=== PATIENT | female | born 1985 | race Caucasian/White ===

== ENCOUNTER 2017-05-21 12:16 | Emergency (ER) | payer MEDICARE, MEDICAID ==
[2017-05-21 13:57] LABS: BASOPHILS 0.6 % (0-2); EOSINOPHILS 0.1 % (0-7); HEMATOCRIT 38.2 % (36.0-48.0); HEMOGLOBIN 12.4 g/dL (12-16); IMMATURE GRANULOCYTES 0.3 % (0-5); LYMPHOCYTES 32.8 % (15-50); MCH 24.4 pg (26.0-34.0); MCHC 32.5 g/dL (31.0-37.0); MEAN PLATELET VOLUME 9.8 fL (7.4-10.4); MONOCYTES 6.1 % (2-11); NEUTROPHILS 60.1 % (40-80); PLATELET COUNT 410 10x3/uL (130-400); RBC 5.09 10x6/uL (4.00-5.40); RDW 15.3 % (11.5-14.5); WBC 8.9 10x3/uL (4.8-10.8)
[2017-05-21 14:08] LABS: HCG SERUM NEGATIVE (NEGATIVE)
[2017-05-21 14:14] LABS: ALBUMIN 3.5 g/dL (3.4-5.0); ALKALINE PHOSPHATASE 53 U/L (46-116); ALT (SGPT) 36 U/L (10-68); BILIRUBIN - TOTAL 0.77 mg/dL (0.2-1.3); CALC OSMOLALITY 275 mosm/kg (275-300); CALCIUM 8.7 mg/dL (8.5-10.1); CHLORIDE - SERUM 102 mmol/L (98-107); CREATININE - SERUM 0.9 mg/dL (0.6-1.3); GLUCOSE 80 mg/dL (74-106); POTASSIUM - SERUM 3.2 mmol/L (3.5-5.1); PROTEIN - SERUM 7.5 g/dL (6.4-8.2); SODIUM 139 mmol/L (136-145); UREA NITROGEN 11 mg/dL (7-18); eGFR NON AFRICAN AMERICAN 77 mL/min (90-120)
[2017-05-21 14:17] LABS: UDS - AMPHET NEGATIVE QUAL (NEGATIVE); UDS - BARB NEGATIVE QUAL (NEGATIVE); UDS - BENZO POSITIVE QUAL (NEGATIVE); UDS - COCAINE NEGATIVE QUAL (NEGATIVE); UDS - OPIATE NEGATIVE QUAL (NEGATIVE); UDS - PCP NEGATIVE QUAL (NEGATIVE); UDS - THC POSITIVE QUAL (NEGATIVE)
[2017-05-21 14:23] LABS: APPEARANCE CLEAR (CLEAR); BILIRUBIN NEGATIVE (NEGATIVE); COLOR YELLOW (YELLOW); GLUCOSE NEGATIVE (NEGATIVE); KETONE NEGATIVE (NEGATIVE); NITRITE NEGATIVE (NEGATIVE); PROTEIN NEGATIVE (NEGATIVE); UROBILINOGEN NORMAL (NORMAL)
== END 2017-05-21 18:05 | disposition short-term general hospital (02) ==
LOC: D.ER 12:16
PROVIDERS: Physician Assistant
DX: F31.9 Bipolar disorder, unspecified (principal); R45.851 Suicidal ideations; Z86.59 Personal history of other mental and behavioral disorders; E87.6 Hypokalemia; F17.200 Nicotine dependence, unspecified, uncomplicated

== ENCOUNTER 2019-06-03 18:20 | Inpatient (IN) | payer MEDICARE, MEDICAID ==
[~2019-06-03] VITALS: Ht 152.4 cm; Wt 70.0 kg
[2019-06-03] MEDS ORDERED: LATUDA40 MG PO (18:38)
[2019-06-03] MEDS ORDERED: CELEXA20 MG PO (18:38)
[2019-06-03] MEDS ORDERED: KLONOPIN0.5 MG PO (18:39)
[2019-06-03] MEDS ORDERED: ZOFRAN4 MG PO (18:39)
[2019-06-03] MEDS ORDERED: ZYRTEC10 MG PO (18:40)
[2019-06-03] MEDS ORDERED: PRENAVITE1 TAB PO (18:40)
[2019-06-03] MEDS ORDERED: PEPCID40 MG PO (18:40)
[2019-06-03] MEDS ORDERED: PEPCID AC20 MG PO (18:41)
[2019-06-03 19:23] LABS: HEMATOCRIT 37.2 % (36.0-48.0); HEMOGLOBIN 12.4 g/dL (12-16); MCH 25.7 pg (26.0-34.0); MCHC 33.3 g/dL (31.0-37.0); MCV 77.2 fL (80.0-100.0); MEAN PLATELET VOLUME 8.9 fL (7.4-10.4); RBC 4.82 10x6/uL (4.00-5.40); RDW 19.6 % (11.5-14.5); WBC 13.4 10x3/uL (4.8-10.8)
[2019-06-03 19:39] LABS: UDS - AMPHET NEGATIVE QUAL (NEGATIVE); UDS - BARB NEGATIVE QUAL (NEGATIVE); UDS - BENZO NEGATIVE QUAL (NEGATIVE); UDS - COCAINE NEGATIVE QUAL (NEGATIVE); UDS - OPIATE NEGATIVE QUAL (NEGATIVE); UDS - PCP NEGATIVE QUAL (NEGATIVE); UDS - THC NEGATIVE QUAL (NEGATIVE)
[2019-06-03 22:48] VITALS: BP 113/80; Ht 152.4 cm; Wt 70.0 kg
--- NOTE | 2019-06-03 23:47 | NUR ---
DR. EDUARDO NOTIFIED AND REVIEWED PT'S BEHAVIOR AND ASSESSMENT RESULTS. PT IS A LOW RISK PER DR. EDUARDO. DR. EDUARDO STATED TO GIVE RESOURCES TO PT AT TIME OF DISCHARGE. NO FURTHER ORDERS AT THIS TIME. RESOURCES REVIEWED WITH PT AND SHE VERBALIZED UNDERSTANDING.
--- NOTE | 2019-06-04 01:02 | NUR ---
ROUNDS MADE. PT LYING TO RT SIDE W/EYES CLOSED. RESP EVEN AND UNLABORED. PT LEFT UNDISTURBED AT THIS TIME.
--- NOTE | 2019-06-04 02:52 | NUR ---
PT RINGS CALL LIGHT. THIS RN TO BEDSIDE. PT REPORTS NOW THAT SHE IS AWAKE. SHE'D LIKE TO GO BACK TO NBN SO SHE MAY GO OFF THE UNIT TO SMOKE. INFANT TRANSPORTED VIA OPEN CRIB TO NBN. PT AMBULATORY OFF UNIT AT THIS TIME.
--- NOTE | 2019-06-04 03:15 | NUR ---
PT RETURNS AMBULATORY TO UNIT AND TO ROOM.
--- NOTE | 2019-06-04 03:20 | NUR ---
SANDWICH TRAY AND SWEET TEA SERVED.
--- NOTE | 2019-06-04 03:32 | NUR ---
PT REQUESTING HER HOME MED OF 0.5MG CLONIPIN. DR JONES CALLED FOR ORDER. T/O RECEIVED TO ADMIN 0.5MG CLONIPIN.
[2019-06-04 03:43] VITALS: BP 112/73
--- NOTE | 2019-06-04 04:00 | NUR ---
KLONOPIN 0.5MG PO ADMIN. PT PLANS TO REST UNTIL INFANT IS RETURNED FOR FEEDING. DENIES FURTHER NEEDS AT THIS TIME.
--- NOTE | 2019-06-04 04:10 | NUR ---
PT AMBULATORY OFF UNIT AT THIS TIME.
--- NOTE | 2019-06-04 05:22 | NUR ---
pt ambulatory off unit at this time.
--- NOTE | 2019-06-04 05:46 | NUR ---
pt returns ambulatory to unit and back to her room. no complaints or needs voiced at this time.
--- NOTE | 2019-06-04 06:30 | NUR ---
ROUNDS MADE. PT RESTING QUIETLY W/EYES CLOSED TO RT SIDE. RESP EVEN AND UNLABORED. PT LEFT UNDISTURBED AT THIS TIME.
[2019-06-04 06:52] LABS: BASOPHILS 0.3 % (0-2); EOSINOPHILS 0.4 % (0-7); HEMATOCRIT 33.4 % (36.0-48.0); HEMOGLOBIN 10.8 g/dL (12-16); IMMATURE GRANULOCYTES 0.4 % (0-5); LYMPHOCYTES 30.7 % (15-50); MCH 25.2 pg (26.0-34.0); MCHC 32.3 g/dL (31.0-37.0); MEAN PLATELET VOLUME 8.6 fL (7.4-10.4); MONOCYTES 9.9 % (2-11); NEUTROPHILS 58.3 % (40-80); PLATELET COUNT 369 10x3/uL (130-400); RBC 4.28 10x6/uL (4.00-5.40); RDW 19.8 % (11.5-14.5); WBC 15.9 10x3/uL (4.8-10.8)
--- NOTE | 2019-06-04 07:19 | NUR ---
NO BEDSIDE SHIFT DONE AT THIS TIME DUE TO PATIENT IS APPARENTLY SLEEPING AT THIS TIME.
[2019-06-04 07:40] VITALS: BP 114/78
--- NOTE | 2019-06-04 07:40 | NUR ---
AM ASSESSMENT COMPLETED, SEE FLOW SHEET. PT DENIES HEAVY BLEEDING OR PASSING CLOTS. PT REQUESTS MOTRIN FOR CHRONIC BACK PAIN, MEDICATION ADM RECORD REVIEWED WITH PT. PT DENIES ALL OTHER NEEDS AT THIS TIME.
--- NOTE | 2019-06-04 08:00 | NUR ---
DR. BEDOYA ON UNIT.
--- NOTE | 2019-06-04 08:00 | NUR ---
DR. JONES TO FOLLOW PT/DELIVERING
--- NOTE | 2019-06-04 08:25 | NUR ---
PT AMBULATORY IN HALLWAY, TALKING ON CELL PHONE. PT SMILING, AND DENIES ALL NEEDS AT THIS TIME. PT THEN BACK TO ROOM, SR UP X 2, CALL LIGHT AND PHONE WITHIN REACH.
--- NOTE | 2019-06-04 09:45 | NUR ---
PT AMBULATORY OUT TO HALLWAYS. PT STATES SHE IS GOING TO GET SOME FRESH AIR. NO DISTRESS NOTED IN PT. PT SMILING, AND DENIES NEEDS AT THIS TIME.
--- NOTE | 2019-06-04 10:25 | NUR ---
PT SITTING UP IN THE BED, TALKING ON CELL PHONE. EXTRA PERIPADS/PANTIES PROVIDED. PT REQUESTS TEA TO DRINK, LARGE GLASS OF ICED TEA SERVED, ALONG WITH SPLENDA AT HER REQUEST. LARGE GLASS OF ICE WATER SERVED WELL. PT DENIES ALL OTHER NEEDS AT THIS TIME. SRUP X 2, CALL LIGHT AND PHONE WITHIN REACH.
--- NOTE | 2019-06-04 12:00 | NUR ---
PT AMBULATORY TO HALLWAYS. PT SMILING AND DENIES ALL NEEDS AT THIS TIME. PHONE CALL THEN RECEIVED FROM DR. JONES ASKING IF WE DISCHARGED THE PT SHE IS STANDING AT THEIR DESK. PT THEN BACK TO UNIT, STATING "I WENT OVER TO THE CLINIC BECAUSE THEY WOULD NOT ANSWER THEIR PHONES AND I HAD A QUESTION, BUT THEY STILL DID NOT ANSWER MY QUESTION, THEY JUST SAID THEY WERE GOING TO CALL LABOR AND DELIVERY". PT'S QUESTION IS THAT SHE WANTED TO KNOW IF DR. JONES WAS GOING TO START HER BACK ON HER HOME MEDS OR NOT. PT BACK TO ROOM, SRUP X2, CALL LIGHT AND PHONE WITHIN REACH. PT DENIES ALL NEEDS AT THIS TIME.
--- NOTE | 2019-06-04 12:15 | NUR ---
DR. JONES CALLS TO UNIT ASKING IF WE HAD DISCHARGED PT, WAS INFORMED WE HAD NOT. DR. JONES SPEAKS WITH Lc ZAMORA RN AND STATES THE PT CAN RESUME HER LISTED HOME MEDS AFTER SHE IS DISCHARGED HOME.
--- NOTE | 2019-06-04 15:42 | MORECARE ---
CASE MANAGEMENT DISCHARGE SUMMARY PATIENT: MINOR BAILEY UNIT: [id number] ADM DATE: 06/03/19 AGE: 34 : 86 SEX: F ROOM/BED: D.1278 AUTHOR: BERNADETTE JON PHYSICIAN: REFERRING PHYSICIAN: LETTY JONES DO DATE OF SERVICE: 06/04/19 Discharge Plan Patient Name: MINOR BAILEY Facility: [facility]:[place] : 1985 Planned Disposition: Home Anticipated Discharge Date: Discharge Date: Expected LOS: Initial Reviewer: [email or web address] Initial Review Date: 06/04/2019 Generated: 06/04/19 4:42 pm Comments DCP- Discharge Planning Updated by [id number]: Tiffany Boyle on 06/04/19 2:[address] Patient Name: MINOR BAILEY Admission Status: Elective Accout number: [id number] Admission Date: 06-03-2019 : 1985 Admission Diagnosis: Attending: CASE Current LOS: 1 Anticipated DC Date: Planned Disposition: Primary Insurance: [facility] MEDICARE ADV Discharge Planning Comments: DC PLAN: MOB HOME WITH INFANT, FOB will transport home. ADDRESS: [address] [place] [address] PHONE NUMBER: [phone] DC NEEDS: STATES NO NEEDS. TRANSPORTATION: YES WIC: HAS ALREADY APPLIED MEDICAID: Just applied CAR SEAT: YES FEEDING PLAN: FORMULA BABY NAME: AYAKA BAILEY FOB: JOHNNY BAILEY MOB: MINOR BAILEY MEDICAL LAB SPECIALIST: DR. BYNUM CARE: YES, DR. BEDOYA SUPPLIES: CLOTHES, BOTTLES, CRIB, CAR SEAT, DIAPERS. DRUG, ALCOHOL OR TOBACCO USE IN THE HOME: TOBACCO USE, FOB AND MOB, STATES THEY SMOKE OUTSIDE. CM MET WITH MOB REGARDING DC PLANNING/NEEDS. MOB STATES PLANS TO DC TO HOME WITH HER WHERE SHE LIVES. FOB, MOB, AND ONE OTHER CHILD LIVES IN THE HOME. MOB STATES SHE HAS A 15-YEAR-OLD THAT LIVES WITH THE GRANDMOTHER. HER 10 Y/O DAUGHTER LIVES IN THE HOME. DENIES SUBSTANCE USE OR ABUSE IN THE HOME. FOB WILL TRANSPORT HER AND INFANT TO DOCTOR APPOINTMENTS AND WILL HELP CARE FOR THE INFANT. THE HOME ENVIRONMENT IS A SAFE PLACE ACCORDING TO PATIENT AND IT IS STATED THAT THEY HAVE ALL SUPPLIES FOR THE . MOB STATES SHE IS MENTALLY DISABLED. HAS SCHIZOEFECTIVE, BIPOLAR, ANXIETY AND SOME OTHER MENTAL HEALTH ISSUES. STATES SHE TAKES MEDICATIONS FOR THESE ILLNESSES AND IS SEEN BY DR. OWENS. DENIES SUICIDAL OR HOMICIDAL THOUGHTS. MAKES EYE CONTACT AND APPEARS TO BE BONDING WELL WITH . NO CONCERNS OR COMPLAINTS. CM WILL FOLLOW AND ASSIST NEEDED. Door Glass Installer: Tiffany Tamar Patient Name: MINOR BAILEY Page [phone] at 1542 All edits/amendments must be made on the electronic document DICTATION DATE: 06/04/19 154 TRANSCRIPT CLERK: TRISHA 06/04/191541 RPT#: [id number] DC DATE: STATUS: ADM IN [facility] [address] [place] [address] END OF REPORT
--- NOTE | 2019-06-04 16:00 | NUR ---
PT AMBULATORY IN HALLWAYS, WITH FAMILY MEMBERS. PT SMILING AND DENIES ALL NEEDS.
--- NOTE | 2019-06-04 17:30 | NUR ---
PT HAS TAKEN A SHOWER, AND IS DRESSED IN OWN CLOTHING. DENIES ALL NEEDS AT THIS TIME. SRUP X2, CALL LIGHT AND PHONE WITHIN REACH.
--- NOTE | 2019-06-04 18:00 | NUR ---
TO PT'S ROOM, PT IS SITTING UP IN THE BED, FEEDING . PT IS TEARFUL, STATING "THEY ARE NOT GOING TO LET HIM GO HOME TODAY". SEE EMAR FOR MED ADM. IV DC'D WITH CATH INTACT, PT PAUL WELL. PT DENIES ALL NEEDS AT THIS TIME. PT HAS REGULAR SUPPER TRAY ON BEDSIDE TABLE, LARGE GLASS OF ICED TEA SERVED, ALONG WITH LARGE MUG OF ICE WATER. SRUP X2, CALL LIGHT AND PHONE WITHIN REACH .
--- NOTE | 2019-06-04 18:20 | NUR ---
PT AMBULATORY IN HALLWAYS, DENIES ALL NEEDS AT THIS TIME.
--- NOTE | 2019-06-04 19:02 | NUR ---
ROUNDS MADE, PT BACK IN ROOM FROM WALK, RESTING IN BED, RATES PAIN 11/12, INFORMED PT THAT I WILL BE BACK SHORLTY TO DO ASSESSMENT, PT VERBALIZES UNDERSTANDING, DENIES NEEDS AT THIS TIME
--- NOTE | 2019-06-04 20:25 | NUR ---
PT UP TO BATHROOM. SPOUSE AND [id number] IN ROOM VISITING. PT DENIES ANY COMPLAINTS OR NEEDS AT THIS TIME. BED IN LOW POSTION, SRU X2, CALL LIGHT AND PHONE IN REACH.
--- NOTE | 2019-06-04 20:40 | NUR ---
PT AMBULATING IN HW. NO DISTRESS NOTED.
--- NOTE | 2019-06-04 20:50 | NUR ---
PT BACK TO ROOM.
[2019-06-04 21:40] VITALS: BP 125/64
--- NOTE | 2019-06-04 21:40 | NUR ---
PT RESTING IN BED. ASSESSMENT COMPLETE PER FLOW SHEET. VSS. BS CLEAR IN ALL LOBES. BOWEL SOUNDS PRESENT X4 QUADRANTS. PT REPORTS PASSING FLATUS AND HAVING A BOWEL MOVEMENT. FUNDUS F@U. SCANT LOCHIA NOTED ON PERIPAD. NO CLOTS PRESENT. NO EDEMA NOTED TO BLE. PT EDUCATED ON PAIN MEDICATION AND VAGINAL BLEEDING. SRU X2, CALL LIGHT AND PHONE WITHIN REACH. PT INSTRUCTED TO NOTIFY NURSE WITH ANY PROBLEMS, NEEDS, OR CONCERNS, VERBALIZED UNDERSTANDING.
--- NOTE | 2019-06-04 21:45 | NUR ---
PT EDUCATION GIVEN TO AND DISCUSSED REGARDING FLU SHOT. PT RECEIVED FLU SHOT IN HER LEFT DELTIOD. TOLERATED WELL. INSTRUCTED PT TO NOTIFY NURSE WITH ANY PROBLEMS, NEEDS, OR CONCERNS, VERBALIZED UNDERSTANDING. BED IN LOW POSITION, SRU X2, CALL LIGHT AND PHONE WITHIN PTS REACH.
--- NOTE | 2019-06-04 22:22 | NUR ---
PT INSTRUCTED ON AND VERBALIZED UNDERSTANDING ON ROOMING AND CONSENT SIGNED AND WITNESSED.
--- NOTE | 2019-06-04 23:36 | NUR ---
PT GIVEN MOTRIN FOR C/O ABD CRAMPING AT THIS TIME. DISCHARGE INSTRUCTIONS IN HAND. QUESTIONS ANSWERED. PT VERBALIZED UNDERSTANDING.
[2019-06-05 07:13] LABS: RAPID PLASMA REAGIN Non Reactive (Non Reactive)
--- NOTE | 2019-06-05 16:10 | MORECARE ---
CASE MANAGEMENT DISCHARGE SUMMARY PATIENT: MINOR BAILEY UNIT: [id number] ADM DATE: 06/03/19 AGE: 34 : 86 SEX: F ROOM/BED: D.1278 AUTHOR: BERNADETTE JON PHYSICIAN: REFERRING PHYSICIAN: LETTY JONES DO DATE OF SERVICE: 06/05/19 Discharge Plan Patient Name: MINOR BAILEY Facility: [facility]:[place] : 1985 Planned Disposition: Home Anticipated Discharge Date: Discharge Date: 06/04/2019 Expected LOS: Initial Reviewer: [email or web address] Initial Review Date: 06/04/2019 Generated: 06/05/19 5:10 pm Comments DCP- Discharge Planning Updated by [email or web address]: Tiffany Boyle on 06/04/19 2:[address] Patient Name: MINOR BAILEY Admission Status: Elective Accout number: [id number] Admission Date: 06-03-2019 : 1985 Admission Diagnosis: Attending: CASE Current LOS: 1 Anticipated DC Date: Planned Disposition: Primary Insurance: [facility] MEDICARE ADV Discharge Planning Comments: DC PLAN: MOB HOME WITH , FOB will transport home. ADDRESS: [address] [place] [address] PHONE NUMBER: [phone] DC NEEDS: STATES NO NEEDS. TRANSPORTATION: YES WIC: HAS ALREADY APPLIED MEDICAID: Just applied CAR SEAT: YES FEEDING PLAN: FORMULA BABY NAME: AYAKA DINORAH BAILEY FOB: JOHNNY BAILEY MOB: MINOR BAILEY INSTALL AND REPAIR TECHNICIAN: DR. BYNUM CARE: YES, DR. BEDOYA SUPPLIES: CLOTHES, BOTTLES, CRIB, CAR SEAT, DIAPERS. DRUG, ALCOHOL OR TOBACCO USE IN THE HOME: TOBACCO USE, FOB AND MOB, STATES THEY SMOKE OUTSIDE. CM MET WITH MOB REGARDING DC PLANNING/NEEDS. MOB STATES PLANS TO DC TO HOME WITH HER WHERE SHE LIVES. FOB, MOB, AND ONE OTHER CHILD LIVES IN THE HOME. MOB STATES SHE HAS A 15-YEAR-OLD THAT LIVES WITH THE GRANDMOTHER. HER 10 Y/O DAUGHTER LIVES IN THE HOME. DENIES SUBSTANCE USE OR ABUSE IN THE HOME. FOB WILL TRANSPORT HER AND INFANT TO DOCTOR APPOINTMENTS AND WILL HELP CARE FOR THE INFANT. THE HOME ENVIRONMENT IS A SAFE PLACE ACCORDING TO PATIENT AND IT IS STATED THAT THEY HAVE ALL SUPPLIES FOR THE INFANT. MOB STATES SHE IS MENTALLY DISABLED. HAS SCHIZOEFECTIVE, BIPOLAR, ANXIETY AND SOME OTHER MENTAL HEALTH ISSUES. STATES SHE TAKES MEDICATIONS FOR THESE ILLNESSES AND IS SEEN BY DR. OWENS. DENIES SUICIDAL OR HOMICIDAL THOUGHTS. MAKES EYE CONTACT AND APPEARS TO BE BONDING WELL WITH . NO CONCERNS OR COMPLAINTS. CM WILL FOLLOW AND ASSIST NEEDED. Malt House Operator: Tiffany JACKSON export: 06/04/19 2:42 Patient Name: MINOR BAILEY Page [phone] at 1610 All edits/amendments must be made on the electronic document DICTATION DATE: 06/05/191609 FILM COMPOSER: TRISHA 06/05/191609 RPT#: [id number] DC DATE:06/04/19 STATUS: DIS IN [facility] [address] [place] [address] END OF REPORT
== END 2019-06-04 23:36 | disposition home or self-care (01) | DRG 807 ==
LOC: D.LDO 18:20 → D.LD 19:00
PROVIDERS: ADMIT Student in an Organized Health Care Education/Training Program; ATTEND Student in an Organized Health Care Education/Training Program
PROC: 10E0XZZ Delivery of Products of Conception, External Approach (ICD-10-PCS; principal; 2019-06-03)
DX: O99.334 Smoking (tobacco) complicating childbirth (principal); Z37.0 Single live birth; F17.200 Nicotine dependence, unspecified, uncomplicated; Z3A.40 40 weeks gestation of pregnancy; O77.0 Labor and delivery complicated by meconium in amniotic fluid